=== PATIENT | male | born 1990 | race Caucasian/White ===

== ENCOUNTER 2020-03-23 23:26 | Emergency (ER) | payer OTHER ==
[~2020-03-23] VITALS: Ht 180.3 cm; Wt 129.3 kg
[2020-03-23 23:36] VITALS: BP 152/101
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
--- NOTE | 2020-03-24 00:31 | DIREP ---
PROCEDURE:CT LOWER EXTREMITY-RT W/O COMPARISON:None. INDICATIONS:hyperextension injury TECHNIQUE:Axial sections through the right knee were performed with sagittal and coronal reconstructions from source images. No contrast was administered. FINDINGS: BONES:A nondisplaced fracture of the posterior lateral tibial plateau is present. No further fracture is noted. JOINTS:No joint effusion is present. SOFT TISSUES:Mild soft tissue swelling about the anteromedial aspect of the proximal tibia. OTHER:Negative. CONCLUSION:1. Nondisplaced fracture of the posterior lateral tibial plateau. 2. Mild soft tissue swelling about the anteromedial proximal tibia. Dictated by: Michela Payton M.D. on 03/24/2020 at 00:27 AM
--- NOTE | 2020-03-24 00:37 | NUR ---
DR JASON SCHRADERP ON PHONE WITH JASON FOR CONSULT
[2020-03-24] MEDS ORDERED: SUBLIMAZE IV STA (00:44)
[2020-03-24] MEDS ORDERED: SUBLIMAZE ONE (00:52)
== END 2020-03-24 01:15 | disposition home or self-care (01) ==
LOC: ER 23:26 → EDBD 23:26 → ER 03-24 01:15
DX: S82.141A Displaced bicondylar fracture of right tibia, initial encounter for closed fracture (principal); W17.89XA Other fall from one level to another, initial encounter; Y93.89 Activity, other specified; Y92.89 Other specified places as the place of occurrence of the external cause; Y99.8 Other external cause status
CPT/HCPCS: 29505; 73700; 96374; 99284; J3010

== ENCOUNTER 2020-05-17 06:02 | Day surgery (SDC) | payer OTHER ==
[2020-05-15 15:44] VITALS: BP 142/80
[2020-05-15 16:18] LABS: BASOPHIL % 0.2 % (0.0-0.2); EOSINOPHIL # 0.1 10^3/uL (0.0-0.2); EOSINOPHIL % 1.4 % (0.0-5.0); LYMPHOCYTES # 2.57 10^3/uL1 (1.0-4.8); LYMPHOCYTES % 29.3 % (24.0-44.0); MEAN CORP HGB 29.3 pg (26-34); MONOCYTES # 0.8 10^3/uL (0.3-0.8); MONOCYTES % 8.9 % (5.0-12.0); NEUTROPHIL # 5.2 10^3/uL (1.8-7.7); NEUTROPHILS % 59.3 % (41.0-85.0); RED CELL DISTRIBUTION WIDTH 12.8 % (11.5-14.5)
[2020-05-15 16:40] LABS: CALCIUM 9.4 mg/dL (8.4-10.5)
[2020-05-17] VITALS (16 sets, daily range): BP systolic 122–162; BP diastolic 68–98
[~2020-05-17] VITALS: Ht 182.9 cm; Wt 131.5 kg
[~2020-05-17 06:02] MED LIST: ANCEF 3 GM in NS 100ML 100 ML IV SCH; ANCEF ONE; LACTATED RINGERS 1,000 ML IV SCH; LACTATED RINGERS 1,000 ML ONE; NS 250ML 250 ML IV ONE
[2020-05-17] MEDS ORDERED: EXPAREL 133 MG/10 ML VIAL IJ ONE (07:14)
[2020-05-17] MEDS ORDERED: DECADRON ONE (07:16)
[2020-05-17] MEDS ORDERED: NEOSTIGMINE ONE (07:16)
[2020-05-17] MEDS ORDERED: TORADOL ONE ×2 (07:16→12:08)
[2020-05-17] MEDS ORDERED: LIDOCAINE 2% VIAL ONE (07:16)
[2020-05-17] MEDS ORDERED: ZOFRAN ONE (07:16)
[2020-05-17] MEDS ORDERED: ROCURONIUM BROMIDE IV ONE ×2 (07:17→12:08)
[2020-05-17] MEDS ORDERED: QUELICIN ONE (07:17)
[2020-05-17] MEDS ORDERED: SUBLIMAZE ONE ×2 (07:17→07:41)
[2020-05-17] MEDS ORDERED: VERSED ONE (07:18)
[2020-05-17] MEDS ORDERED: DIPRIVAN IV ONE (07:18)
[2020-05-17] MEDS ORDERED: TRANEXAMIC ACID ONE (07:18)
[2020-05-17] MEDS ORDERED: SODIUM CHLORIDE IRR BOTTLE IR ONE (07:31)
[2020-05-17] MEDS ORDERED: NS 3000ML IRR IR ONE (07:31)
[2020-05-17] MEDS ORDERED: DILAUDID ONE (10:02)
[2020-05-17] MEDS ORDERED: EPHEDRINE SULFATE ONE (12:08)
[2020-05-17] MEDS ORDERED: EPHEDRINE SULFATE IV PRN (12:30)
[2020-05-17] MEDS ORDERED: TRANDATE IV PRN (12:30)
[2020-05-17] MEDS ORDERED: BENADRYL IV PRN (12:30)
[2020-05-17] MEDS ORDERED: ZOFRAN IV PRN (12:30)
[2020-05-17] MEDS ORDERED: DEMEROL IV PRN (12:30)
[2020-05-17] MEDS ORDERED: VENTOLIN IH PRN (12:30)
[2020-05-17] MEDS ORDERED: PHENERGAN IV PRN (12:30)
[2020-05-17] MEDS ORDERED: DILAUDID IV PRN (12:30)
--- NOTE | 2020-05-17 13:36 | DIREP ---
PROCEDURE:XRAY KNEE 2 VWS-RT COMPARISON:[facility], CT, CT LOWER EXTREMITY-RT W/O, 03/24/2020, 00:15 AM. Right knee MR performed at [facility] on 04/04/2020 INDICATIONS:RIGHT KNEE ACL RECONSTRUCTION FINDINGS: BONES:Postoperative changes of ACL reconstruction with metallic anchor in the anterior tibial tubercle and endo-button in the lateral femoral condyle. Minimally impacted fracture seen involving the posterior/central aspect of the right tibial plateau on the prior CT and MR is not well visualized radiographically. No new fracture. JOINTS:No dislocation. Alignment is normal. Expected postoperative intra-articular gas is noted SOFT TISSUES:Expected postoperative soft tissue edema and gas about the right knee. Anterior and lateral skin renée are present. OTHER:No additional findings. CONCLUSION: Postoperative changes of right ACL reconstruction with expected postoperative intra-articular/soft tissue gas and overlying edema. Dictated by: Nilo Joshua MD on 05/17/2020 at 01:29 PM
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
== END 2020-05-17 14:30 | disposition home or self-care (01) ==
LOC: SDC 06:02
PROVIDERS: ATTEND Orthopaedic Surgery
DX: S83.511A Sprain of anterior cruciate ligament of right knee, initial encounter (principal); S83.281A Other tear of lateral meniscus, current injury, right knee, initial encounter; M94.261 Chondromalacia, right knee; X58.XXXA Exposure to other specified factors, initial encounter; Z79.899 Other long term (current) drug therapy; Z98.890 Other specified postprocedural states
CPT/HCPCS: 29881; 29888; 36415; 73560; 80053; 85025; A4217 ×2; A4649 ×6; C1713; J0330; J0690; J1100; J1170; J1885 ×2; J2001; J2250; J2405; J2710; J3010 ×2; J3490 ×2; J7050; J7120